=== PATIENT | female | born 1990 | race African-American/Black ===

== ENCOUNTER 2020-03-10 13:22 | Emergency (ER) | payer SELFPAY ==
[~2020-03-10] VITALS: Ht 165.1 cm; Wt 69.9 kg
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
--- NOTE | 2020-03-10 14:35 | NUR ---
DR WEST AT BEDSIDE FOR EVAL.
[2020-03-10] MEDS ORDERED: BACITRACIN ZINC OINT PACKET 1 EA PACKET TP ONE ×2 (14:55→15:00)
[2020-03-10] MEDS ORDERED: KETOROLAC TROMETHAMINE 15 MG/ML VIAL ONE (14:55)
[2020-03-10] MEDS ORDERED: KETOROLAC TROMETHAMINE INJ 30 MG/ML VIAL IM ONE (15:00)
[2020-03-10] MEDS ORDERED: IBUP-1955 PO (15:54)
--- NOTE | 2020-03-10 16:40 | NUR ---
Patient a/ox4, breathing even and unlabored, no sob noted. Ambulatory with steady gait. Patient discharged to home in stable condition. Written and verbal after care instructions given. Patient verbalizes understanding of instruction.
[2020-03-10 16:41] VITALS: BP 129/92
== END 2020-03-10 16:41 | disposition home or self-care (01) ==
LOC: ER 13:32
DX: S46.812A Strain of other muscles, fascia and tendons at shoulder and upper arm level, left arm, initial encounter (principal); S50.812A Abrasion of left forearm, initial encounter; S50.811A Abrasion of right forearm, initial encounter; R07.89 Other chest pain; Z60.2 Problems related to living alone; V49.49XA Driver injured in collision with other motor vehicles in traffic accident, initial encounter; Y93.89 Activity, other specified; Y92.488 Other paved roadways as the place of occurrence of the external cause; Y99.8 Other external cause status
CPT/HCPCS: 71045; 96372; 99283; J1885